=== PATIENT | male | born 1950 | race Caucasian/White ===

== ENCOUNTER 2019-09-01 05:48 | Emergency (ER) | payer MEDICARE, BC ==
[~2019-09-01] VITALS: Ht 177.8 cm; Wt 77.3 kg
[2019-09-01 05:57] VITALS: BP 121/69; PULSE 60; TEMP 97.2
== END 2019-09-01 06:50 | disposition home or self-care (01) ==
LOC: COL.ER 05:48
DX: S05.01XA Injury of conjunctiva and corneal abrasion without foreign body, right eye, initial encounter (principal); X58.XXXA Exposure to other specified factors, initial encounter; Y92.009 Unspecified place in unspecified non-institutional (private) residence as the place of occurrence of the external cause

== ENCOUNTER 2020-02-16 11:31 | Emergency (ER) | payer MEDICARE, BC ==
[~2020-02-16] VITALS: Ht 177.8 cm; Wt 77.3 kg
[2020-02-16 11:49] VITALS: BP 147/82; TEMP 97.8
[2020-02-16] MEDS ORDERED: NORCO 325 MG-51 TAB PO (13:00)
[2020-02-16 13:32] VITALS: PULSE 59
== END 2020-02-16 13:32 | disposition home or self-care (01) ==
LOC: COL.ER 11:31
DX: S49.92XA Unspecified injury of left shoulder and upper arm, initial encounter (principal); W11.XXXA Fall on and from ladder, initial encounter